=== PATIENT | male | born 1955 | race Caucasian/White ===

== ENCOUNTER → 2021-12-23 | Day surgery (SDC) | payer OTHER ==
[~2021-12-23] VITALS: Ht 182.9 cm; Wt 90.7 kg
[~2021-12-23] MED LIST: ASCORBIC ACID500 MG PO; ASPIRIN EC81 MG PO; CLONAZEPAM 1MG T1 MG PO; LIPITOR20 MG PO; LISINOPRIL-HCT1 EAC1 PO; MAG-OXIDE 400M400 MG PO; PERCOCET 10-321 EACH PO; PLAVIX75 MG PO; POTASSIUM20 MEQ/11 PO; TOPROL XL 25MG25 MG PO; VITAMIN B-121000 MC1 PO; ZINC50 M1 PO
[2021-12-23 08:35] LABS: BUN/CREAT RATIO (CALC) 24.2 RATIO; CREATININE 0.91 mg/dL (0.67-1.17)
== END | disposition home or self-care (01) ==
LOC: FAS 06:03
PROVIDERS: Anesthesiology
DX: M65.342 Trigger finger, left ring finger (principal); I10 Essential (primary) hypertension; E78.00 Pure hypercholesterolemia, unspecified; Z79.82 Long term (current) use of aspirin; Z79.02 Long term (current) use of antithrombotics/antiplatelets; Z79.899 Other long term (current) drug therapy
CPT/HCPCS: 36415; 80048; 93005; J1885; J2250; J2405; J2704; J3010; J7120

== ENCOUNTER 2022-04-12 19:47 | Emergency (ER) | payer OTHER ==
[2022-04-12 20:32] LABS: BASOPHIL 1.1 % (0-2); EOSINOPHIL 3.2 % (0-7); HCT 38.8 % (42.0-52.0); HGB 12.8 g/dl (13.2-18.0); LYMPHOCYTE 26.3 % (15-48); MCH 30.1 pg (25.0-31.0); MCV 91.3 fL (78.0-100.0); MONOCYTE 7.8 % (0-12); MPV 9.3 fL (6.0-9.5); NEUTROPHIL 61.2 % (41-80); NRBC 0; PLT 282 K/uL (150-400); RBC 4.25 M/uL (4.70-6.00); RDW 13.7 % (11.5-14.0)
[2022-04-12 20:46] LABS: ALBUMIN 3.8 g/dL (3.4-5.0); BILIRUBIN - TOTAL 0.4 mg/dL (0.2-1.0); BUN/CREAT RATIO (CALC) 18.2 RATIO; CREATININE 1.21 mg/dL (0.67-1.17); GLOBULIN (CALCULATION) 3.5 g/dL; INR 1.07 (0.9-1.2); PROTHROMBIN TIME 13.6 SECONDS (11.9-13.9); TOTAL PROTEIN 7.3 g/dL (6.4-8.2)
[2022-04-12 20:47] LABS: PTT 25.3 SECONDS (24.9-34.6)
== END 2022-04-13 | disposition home or self-care (01) ==
LOC: FER 19:47
PROVIDERS: Emergency Medicine
DX: S93.601A Unspecified sprain of right foot, initial encounter (principal); R07.89 Other chest pain; I10 Essential (primary) hypertension; Z87.891 Personal history of nicotine dependence; Z28.310 Unvaccinated for COVID-19; W19.XXXA Unspecified fall, initial encounter
CPT/HCPCS: 36415; 71046; 73610; 73630; 80053; 84484; 85025; 85610; 85730; 93005; 93971; J1170